=== PATIENT | female | born 1995 | race Caucasian/White ===

== ENCOUNTER 2021-09-16 11:44 | Emergency (ER) | payer OTHER ==
[2021-09-16] MEDS ORDERED: LIDOCAINE 1% W/EPI 1:100,000 MDV 20 ML VIAL ONE (12:13)
[2021-09-16] MEDS ORDERED: TETANUS & DIPHTHERIA TOX,ADULT 0.5 ML VIAL ONE (12:16)
--- NOTE | 2021-09-16 12:36 | ER ---
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 <3 cm ll1 laceration, bleeding controlled. PMS intact. Coronavirus screen: Vaccine status: Patient reports being unvaccinated. Client denies travel out of the [place] in the last 14 days. At this time, the client does not indicate any symptoms associated with coronavirus-19. Ebola Screen: Patient denies travel to an Ebola-affected area in the 21 days before illness onset. Initial Sepsis Screen: Does the patient meet any 2 criteria? HR > 90 bpm. No. Patient's initial sepsis screen is negative. Does the patient have a suspected source of infection? Yes: Skin breakdown/wound. Risk Assessment: Do you want to hurt yourself or someone else? Patient reports no desire to harm self or others. Onset of symptoms was September 16, 2021. 11:54 Method Of Arrival: Ambulatory ll1 11:54 Acuity: YOLANDA 4 ll1 Triage Assessment: 11:56 General: Appears in no apparent distress. Behavior is calm, cooperative, appropriate ll1 for age. Pain: Complains of pain in left arm Pain currently is 2 out of 10 on a pain scale. Quality of pain is described as burning, aching. Derm: Reports laceration L FA. Musculoskeletal: Circulation, motion, and sensation intact. Capillary refill < 3 seconds. Injury Description: Laceration. 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 Last tetanus immunization: unknown. - Social history:: Smoking status: Patient denies any tobacco usage or history of. Screenin:01 Abuse screen: Denies threats or abuse. Denies injuries from another. Nutritional jg9 screening: No deficits noted. Tuberculosis screening: No symptoms or risk factors identified. Fall Risk None identified. Assessment: 12:00 Reassessment: Patient appears in no apparent distress at this time. Patient is alert, jg9 oriented x 3, equal unlabored respirations, skin warm/dry/pink. gaping laceration <1cm noted to left anterior mid forearm, patient reports she got cut by a tent pole she was attempting to remove. . Derm: Skin Wound noted left arm Wound is <1 cm laceration. Vital Signs: 11:54 BP 132 / 91; Pulse 99; Resp 16; Temp 98.5; Pulse Ox 99% ; Weight 81.65 kg; Height 5 ft. ll1 3 in. (160.02 cm); Pain 2/10; 12:00 BP 135 / 89; Pulse 98; Resp 12 S; Pulse Ox 100% on R/A; Pain 0/10; jg9 12:30 BP 109 / 60; Pulse 89; Resp 14 S; Pulse Ox 97% on R/A; Pain 0/10; jg9 11:54 Body Mass Index 31.89 (81.65 kg, 160.02 cm) 1 ED Course: 11:47 Patient arrived in ED. jj6 11:54 Nichole Sinha, CLARITZA is Primary Nurse. jg9 11:54 Arm band placed on Patient placed in an exam room, on a stretcher. ll1 11:56 Triage completed. ll1 11:59 Daljit Wilkins PA is PHCP. cp 11:59 Daljit Valiente MD is Attending Physician. cp 12:02 Patient has correct armband on for positive identification. Bed in low position. Call jg9 light in reach. Side rails up X 1. 12:40 No provider procedures requiring assistance completed. jg9 12:40 Patient did not have IV access during this emergency room visit. jg9 Administered Medications: 12:15 Drug: Tetanus-Diphtheria Toxoid Adult 0.5 ml {Group Tester: [employer]. Exp: jg9 06/24/2023. Lot #: [id number]. } Route: IM; Site: left deltoid; 12:36 Follow up: Response: No adverse reaction jg9 12:16 Drug: Lidocaine-Epinephrine -1%: (1:100,000) 5 ml {Note: left forearm laceration.} jg9 Volume: 20 ml; Route: Infiltration; 12:36 Follow up: Response: No adverse reaction; Pain is decreased jg9 Medication: 12:02 VIS not applicable for this client. jg9 Outcome: 12:36 Discharge ordered by . venessa 12:40 Discharged to home ambulatory. jg9 12:40 Condition: stable 12:40 Discharge instructions given to patient, Instructed on discharge instructions, follow up and referral plans. Demonstrated understanding of instructions, follow-up care. 12:40 Patient left the ED. jg9 Signatures: Daljit Wilkins PA PA cp Lewis, Lynsay, RN RN ll1 Nichole Hayes jj6 Nichole Sinha RN RN jg9
--- NOTE | 2021-09-16 12:37 | EDPHYS ---
Physician Documentation [facility] Name: Carmelita Martin Age: 26 yrs Sex: Female : 1995 Arrival Date: 09/16/2021 Time: 11:47 Bed 9 Private MD: ED Physician Daljit Valiente HPI: 09/16 12:15 This 26 yrs old Female presents to ER via Ambulatory with complaints of Arm Injury, cp Laceration To Arm. 12:15 The patient or guardian complains of a laceration, clean. The complaints affect the cp volar side left forearm. Context: resulted from broken piece of beach umbrella. Onset: The symptoms/episode began/occurred just prior to arrival. Treatment prior to arrival includes: no previous treatment. Associated signs and symptoms: The patient has no apparent associated signs or symptoms. 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 Last tetanus immunization: unknown. - Social history:: Smoking status: Patient denies any tobacco usage or history of. ROS: 12:18 Eyes: Negative for injury, pain, redness, and discharge. cp 12:18 Constitutional: Negative for body aches, chills, fever. 12:18 Neck: Negative for pain with movement, pain at rest, stiffness. 12:18 Cardiovascular: Negative for chest pain. 12:18 Respiratory: Negative for cough, shortness of breath, wheezing. 12:18 Abdomen/GI: Negative for abdominal pain, nausea, vomiting, and diarrhea. 12:18 Back: Negative for pain at rest, pain with movement. 12:18 Skin: Positive for laceration(s), of the left forearm. 12:18 Neuro: Negative for altered mental status, headache, numbness, tingling, weakness. 12:18 All other systems are negative. Exam: 12:25 Constitutional: The patient appears in no acute distress, alert, awake, comfortable, cp well developed, well nourished. 12:25 Head/Face: Normocephalic, atraumatic. cp 12:25 Cardiovascular: Rate: normal, Pulses: Pulses are 2+ in left radial artery. 12:25 Respiratory: the patient does not display signs of respiratory distress, Respirations: normal, no use of accessory muscles, no retractions, labored breathing, is not present, Breath sounds: are clear throughout. 12:25 Musculoskeletal/extremity: Extremities: grossly normal except: noted in the volar side left forearm: laceration, tenderness, ROM: full active range of motion, in the left hand, Perfusion: the extremity is normally perfused throughout, the left hand Sensation intact. Vital Signs: 11:54 BP 132 / 91; Pulse 99; Resp 16; Temp 98.5; Pulse Ox 99% ; Weight 81.65 kg; Height 5 ft. ll1 3 in. (160.02 cm); Pain 2/10; 12:00 BP 135 / 89; Pulse 98; Resp 12 S; Pulse Ox 100% on R/A; Pain 0/10; jg9 12:30 BP 109 / 60; Pulse 89; Resp 14 S; Pulse Ox 97% on R/A; Pain 0/10; jg9 11:54 Body Mass Index 31.89 (81.65 kg, 160.02 cm) ll1 Laceration: 12:35 Wound Repair of 3.5cm ( 1.4in ) subcutaneous laceration to volar side left forearm. cp Linear shaped.. Distal neuro/vascular/tendon intact. Anesthesia: Wound infiltrated with 5 mls of 1% lidocaine w/ Epi. Wound prep: Moderate cleansing by me, Wound irrigation by me. Skin closed with 5 4-0 Prolene using interrupted sutures and sterile technique. Dressed with 4x4's. Patient tolerated well. MDM: 11:59 Patient medically screened. cp 12:15 Differential diagnosis: open fracture, simple laceration, tendon injury. cp 12:36 Data reviewed: vital signs, nurses notes, and as a result, I will discharge patient. cp 12:36 Counseling: I had a detailed discussion with the patient and/or guardian regarding: the cp historical points, exam findings, and any diagnostic results supporting the discharge/admit diagnosis, the need for outpatient follow up, a family practitioner, to return to the emergency department if symptoms worsen or persist or if there are any questions or concerns that arise at home. 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 Exp: jg9 06/24/2023. Lot #: [id number]. } Route: IM; Site: left deltoid; 12:36 Follow up: Response: No adverse reaction jg9 12:16 Drug: Lidocaine-Epinephrine -1%: (1:100,000) 5 ml {Note: left forearm laceration.} jg9 Volume: 20 ml; Route: Infiltration; 12:36 Follow up: Response: No adverse reaction; Pain is decreased jg9 Disposition Summary: 09/16/21 12:36 Discharge Ordered Location: Home cp Problem: new cp Symptoms: have improved cp Condition: Stable cp Diagnosis - Laceration without foreign body of left forearm cp Followup: cp - With: Private Physician - When: 7 - 10 days - Reason: Staple/Suture removal Discharge Instructions: - Discharge Summary Sheet cp - Laceration Care, Adult cp Forms: - Medication Reconciliation Form cp - Thank You Letter cp - Antibiotic Education cp - Prescription Opioid Use cp Signatures: Daljit Wilkins PA PA cp Lewis, Lynsay, RN RN ll1 Nichole Sinha RN RN jg9
[2021-09-16 14:05] VITALS: BP 109/60; TEMP 98.5; O2SAT 97
== END 2021-09-16 12:40 | disposition home or self-care (01) ==
LOC: ER 11:44
PROC: 0JQH0ZZ Repair Left Lower Arm Subcutaneous Tissue and Fascia, Open Approach (ICD-10-PCS; principal; 2021-09-16)
DX: S51.812A Laceration without foreign body of left forearm, initial encounter (principal); Z23 Encounter for immunization
CPT/HCPCS: 90471; 90714; 99283